=== PATIENT | male | born 1955 | race African-American/Black ===

== ENCOUNTER 2020-03-27 20:27 | Emergency (ER) | payer MEDICARE, SELFPAY ==
--- NOTE | ~2020-03-27 | CT_ITS ---
EXAMINATION: CT brain wo con INDICATION: Left hand numbness COMPARISON: None TECHNIQUE: Standard unenhanced head CT. The dose-length product (DLP) was 681.00 mGy-cm. The mA was a djusted according to patient size. Iterative reconstruction technique was employed. FINDINGS: There is no intracranial hemorrhage, acute infarction, or abnormal mass lesion. The ventric les are normal. There is no abnormal mass effect or midline shift. The madrigal-white matter differentiat ion is normal. The basal cisterns are patent. A few areas of scattered low attenuation in the white m atter likely reflect small vessel ischemic disease. The orbits are normal. The paranasal sinuses, mas toids and calvarium are normal. IMPRESSION: 1. No acute intracranial abnormality. Reviewed, dictated and finalized at location A.
--- NOTE | 2020-03-27 20:31 | ED.GENADULT ---
HPI - General Adult General Chief complaint: Neuro Symptoms/Deficit Stated complaint: finger numbness Time Seen by Provider: 03/27/20 20:31 Source: patient Mode of arrival: ambulatory Limitations: no limitations History of Present Illness HPI narrative: Patient is a 64-year-old male with a history of alcohol abuse who presents for evaluation of left hand numbness. Patient reports a one-month history of intermittent hand numbness. Pt denies trauma to the hand. No change in machine packer strength. No current numbness. No elbow or shoulder pain. No vision changes. Pt states he drank a fifth today. He states he drinks most days. He states he has not eaten any meals in three days. He states he lives at home with his . He denies drug use. He denies history of any medical problems. Related Data Allergies Allergy/AdvReac Type Severity Reaction Status Date / Time No Known Allergies Allergy Verified 03/27/20 20:37 Review of Systems Review of Systems: Narrative: CONSTITUTIONAL: Denies fever, chills, or sweats. EYES: Denies visual changes ENT: Denies rhinorrhea, congestion, sore throat, or otalgia. CARDIOVASCULAR: Denies chest pain RESPIRATORY: Denies cough or dyspnea. GASTROINTESTINAL: Denies abdominal pain GENITOURINARY: Denies dysuria or hematuria. SKIN: Denies rash MUSCULOSKELETAL: Denies back pain, joint pain, or myalgia. NEUROLOGIC: Denies headache, reports left hand numbness, none currently PMFSH Past Medical History Medical History (Updated 03/27/20 @ 21:49 by Carolyn Perales MD) No pertinent past medical history Surgical History Surgical History (Updated 03/27/20 @ 20:47 by Carolyn Perales MD) H/O hernia repair Social History Social History (Updated 03/27/20 @ 20:47 by Carolyn Perales MD) Smoking status: Current every day smoker Tobacco type: cigarettes Alcohol intake: current Drinks per week: 30 Substance use: unknown Living arrangements: with family Gender identity (if verbalized by the patient): Male Exam Narrative: Exam Narrative: GENERAL: Awake, alert, conversant HEAD: Normocephalic, atraumatic. EYES: PERRLA and EOMI. ENT: Nares clear, no rhinorrhea or epistaxis. Mucous membranes moist. NECK: Supple. CHEST: No respiratory distress, breathing even and non labored HEART: Regular rate, sinus rhythm ABDOMEN:Non distended, non tender EXTREMITIES: Normal range of motion. No edema. Intact sensation median, ulnar, radial nerve distribution. Radial pulse 2+ bilaterally. Interossei strength is 5 out of 5 bilaterally. Patient is able to detect gross motor and fine sensation. SKIN: Warm, dry, no rash. NEURO:No focal deficits. Alert and oriented x3. Finger to nose intact bilaterally. EOMs intact without nystagmus. No facial droop/asymmetry noted bilaterally. Grimace intact. Intact sensation in face. Hearing intact bilaterally. Shoulder shrug intact. Strength 5/5 bilateral upper extremities. Strength 5/5 bilateral lower extremities. Reflexes 2+ patellar. Heel to good intact bilaterally. Ambulatory with a narrow base, steady gait. Course Vital Signs Vital signs: Vital Signs Temperature 36.8 C 03/27/20 20:32 Pulse Rate 121 H 03/27/20 20:32 Respiratory Rate 18 03/27/20 20:32 Blood Pressure 160/102 H 03/27/20 20:32 Pulse Oximetry 97 03/27/20 20:32 Temperature 36.8 C 03/27/20 20:32 Pulse Rate 72 03/27/20 21:30 Respiratory Rate 15 03/27/20 21:30 Blood Pressure 135/78 03/27/20 21:30 Pulse Oximetry 98 03/27/20 21:30 Medical Decision Making MDM Narrative Medical decision making narrative: Patient presenting for evaluation of 1 month history of left hand numbness which is intermittent. Currently the patient's hand is not numb. He is ambulatory with a narrow base, steady gait, moving all extremities spontaneously, and a normal neurological exam. His machine packer strength is equal bilaterally and he has intact sensation in both hands in the median, ulnar, radial nerve distribu
[2020-03-27 20:32] VITALS: BP 160/102; PULSE 121; RESP 18; TEMP 36.8; O2SAT 97
--- NOTE | 2020-03-27 20:38 | ECG_ITS ---
Measurements Intervals [place] Rate: 93 P: 45 TX: 140 QRS: -3 QRSD: 104 T: 56 QT: 378 QTc: 472 Interpretive Statements SINUS RHYTHM DELAYED PRECORDIAL R/S TRANSITION NONSPECIFIC ST ELEVATION- ANT/INF LEADS BORDERLINE ECG Electronically Signed On 03-28-2020 7:23:54 CDT by Serjio Kolb D.O.
[2020-03-27] MEDS: SODIUM CHLORIDE 0.9% IV 1,000 ML 999 ML IV CONT (20:56)
[2020-03-27 21:01] LABS: Basophils Percent Auto 0.5 % (0.2-1.2); Eosinophils Percent Auto 0.8 % (0-4.4); Hematocrit 43.1 % (42.0-52.0); Hemoglobin 14.2 g/dL (14.0-18.0); Immature Granulocyte Absolute 0.01 K/mm3 (0.00-0.031); Immature Granulocyte Percent A 0.3 % (0-0.5); Lymphocytes Absolute Auto 1.89 K/mm3 (0.9-3.2); Lymphocytes Percent Auto 49.3 % (18.3-44.2); Mean Corpuscular HGB Conc 32.9 g/dl (32-36); Mean Corpuscular Hemoglobin 28.3 pg (26-34); Mean Corpuscular Volume 85.9 fl (80-100); Mean Platelet Volume 9.6 fl (7.4-10.4); Monocytes Absolute Auto 0.4 K/mm3 (0.1-0.6); Monocytes Percent Auto 9.4 % (2.6-8.5); Neutrophils Absolute Auto 1.5 K/mm3 (1.3-6.7); Neutrophils Percent Auto 39.7 % (45.5-73.1); Platelet Count Result 271 k/mm3 (150-375); Red Blood Count 5.02 M/mm3 (4.6-6.20); Red Cell Distribution Width 13.8 % (11.5-14.5); White Blood Count 3.8 K/mm3 (4.5-10.0)
[2020-03-27 21:12] LABS: Alanine Aminotransferase 174 U/L (4-50); Albumin Level 4.8 g/dL (3.5-5.1); Alkaline Phosphatase 111 U/L (38-126); Aspartate Amino Transferase 214 U/L (17-59); Bilirubin,Total 0.5 mg/dL (0.2-1.3); Blood Urea Nitrogen 6 mg/dL (9-20); Calcium 8.6 mg/dL (8.4-10.2); Carbon Dioxide 23 mmol/L (22-30); Chloride 102 mmol/L (98-107); Estimated CRCL calculation 80 ml/min; Estimated Glomerular Filt Rate > 60; Glucose 113 mg/dL (75-110); Potassium 4.1 mmol/L (3.4-5.0); Sodium 140 mmol/L (137-145)
[2020-03-27 21:30] VITALS: BP 135/78; PULSE 72; RESP 15; O2SAT 98
[2020-03-27 22:02] VITALS: BP 138/82; PULSE 80; RESP 17; O2SAT 98
[2020-03-27] MEDS: FOLIC ACID 1 MG TABLET PO (22:02)
[2020-03-27] MEDS: THIAMINE HCL 100 MG TABLET PO (22:02)
== END 2020-03-27 22:04 | disposition home or self-care (01) ==
PROVIDERS: Emergency Provider Emergency Medicine; PCP Internal Medicine
DX: G62.9 Polyneuropathy, unspecified (principal); F17.210 Nicotine dependence, cigarettes, uncomplicated; R94.31 Abnormal electrocardiogram [ECG] [EKG]
CPT/HCPCS: 36415; 70450; 80053; 82607; 82746; 85025; 93005; 96360; 99284; A9270; J7030